=== PATIENT | male | born 1985 | race Caucasian/White ===

== ENCOUNTER 2022-05-04 21:54 | Emergency (ER) | payer SELFPAY ==
[~2022-05-04] VITALS: Ht 162.6 cm; Wt 79.4 kg
[2022-05-04 22:20] VITALS: BP 147/81
--- NOTE | 2022-05-04 22:32 | NUR ---
Patient taken to bed 12. Addendum: 05/04/22 at 2308 by [email or web address] Patient taken to bed 7.
[2022-05-04 22:59] VITALS: BP 154/107
[2022-05-04 23:05] VITALS: BP 154/107
--- NOTE | 2022-05-04 23:18 | NUR ---
PATIENT ELOPED FROM FACILITY. DISCHARGE INSTRUCTIONS NOT GIVEN TO PATIENT. DR. Dill NOTIFIED.
--- NOTE | 2022-05-04 23:18 | NUR ---
Patient walked out ER.
== END 2022-05-04 23:08 | disposition left against medical advice (07) ==
LOC: MED 21:54
DX: R06.02 Shortness of breath (principal); Z53.21 Procedure and treatment not carried out due to patient leaving prior to being seen by health care provider
CPT/HCPCS: 71045